=== PATIENT | female | born 1995 | race African-American/Black ===

== ENCOUNTER 2018-11-12 16:30 | Emergency (ER) | payer OTHER ==
[2018-11-12 16:34] VITALS: BP 128/82; PULSE 90; TEMP 98.6; BMI 26.6
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
== END 2018-11-12 18:42 | disposition home or self-care (01) ==
LOC: JERFT 16:30
DX: M79.662 Pain in left lower leg (principal); V03.90XA Pedestrian on foot injured in collision with car, pick-up truck or van, unspecified whether traffic or nontraffic accident, initial encounter; Y92.481 Parking lot as the place of occurrence of the external cause; Y93.89 Activity, other specified; Y99.8 Other external cause status
CPT/HCPCS: 99281-25

== ENCOUNTER 2019-02-22 15:16 | Emergency (ER) | payer OTHER | END 2019-02-22 17:36 | disposition home or self-care (01) | LOC: JERFT 15:16 ==

== ENCOUNTER 2019-11-01 12:37 | Emergency (ER) | payer OTHER ==
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
[2019-11-01 12:55] VITALS: BP 115/64; PULSE 57; TEMP 98.4; BMI 25.4
--- NOTE | 2019-11-02 14:29 | EKG ---
Test Reason : Blood Pressure : / mmHG Vent. Rate : 052 BPM Atrial Rate : 052 BPM P-R Int : 154 ms QRS Dur : 082 ms QT Int : 442 ms P-R-T Axes : 061 069 033 degrees QTc Int : 411 ms SINUS BRADYCARDIA OTHERWISE NORMAL ECG NO PREVIOUS ECGS AVAILABLE Confirmed by CARLOS BESS MD ([id number]) on 11/02/2019 2:28:52 PM Referred By: MICHAEL BENDER Confirmed By:CARLOS BESS MD
== END 2019-11-01 14:04 | disposition home or self-care (01) ==
LOC: FER 12:37
DX: M94.0 Chondrocostal junction syndrome [Tietze] (principal)
CPT/HCPCS: 93005; 99282-25